=== PATIENT | female | born 1985 | race Caucasian/White ===

== ENCOUNTER → 2019-10-02 | Outpatient (CLI) | payer OTHER ==
--- NOTE | 2019-10-02 16:13 | RAD ---
Transabdominal and transvaginal sonography of the pelvis Clinical indications: Spotting. Dyspareunia. History of IUD. Transabdominal sonography: The uterus is anteverted in position. The endometrial canal is poorly visualized. Therefore, transvaginal sonography will be performed. Neither ovary is visualized as well. No adnexal mass is seen. Transvaginal sonography: The uterus is anteverted in position. The longitudinal and AP and transverse dimensions of the uterus are 8.9 cm and 4.0 cm and 4.8 cm respectively. An IUD is seen within the central aspect of the endometrial canal which is proper positioning. Otherwise the endometrial canal is not abnormally thickened and the canal measures 5 mm in greatest dimension. No uterine mass or fibroid is seen. The right ovary measures 3.2 cm x 2.3 cm x 3.1 cm in size and contains normal follicular cysts. Color Doppler flow is seen within the right ovary. The left ovary measures 3.3 cm and 2.3 cm and 2.5 cm in size and contains normal follicular cysts. Color Doppler flow is seen within left ovary. A small amount of physiologic free fluid is seen within the cul-de-sac. No adnexal mass is seen. IMPRESSION: Unremarkable pelvic sonogram. Electronically signed by: Zaid Damon MD (10/02/2019 4:10 PM) [facility] [place]
== END | disposition home or self-care (01) ==
LOC: US 12:51
PROVIDERS: ATTEND Registered Nurse
DX: N92.0 Excessive and frequent menstruation with regular cycle (principal); N94.10 Unspecified dyspareunia; Z97.5 Presence of (intrauterine) contraceptive device
CPT/HCPCS: 76830; 76856